=== PATIENT | male | born 1940 | race Caucasian/White ===

== ENCOUNTER 2016-08-24 07:36 | Day surgery (SDC) | payer OTHER ==
[2016-08-22 12:42] VITALS: BMI 33.7
[2016-08-24] MEDS ORDERED: PROPOFOL 20 ML ONE ×2 (07:40)
[2016-08-24] MEDS ORDERED: LIDOCAINE HCL/PF 2% SDV 5ML VIAL ONE (08:18)
[2016-08-24 10:38] VITALS: BP 145/80; PULSE 66; TEMP 97.8
--- NOTE | 2016-08-26 08:51 | PATH ---
Surgical Pathology Report Patient Name: EDUARDO FERREIRA [facility]. Rec. #: [id number] /Age/Gender: 1940 (Age: 76) / M Account: [id number] Location: [facility] Taken: 08/24/2016 Received: 08/24/2016 Reported: 08/26/2016 Physicians: Severiano Rosenberg M.D. Specimen(s) Received A: BX ANTRUM B: BX GE JUNCTION C: BX ESOPHAGUS Clinical History GERD, Cardoza's esophagus Rule out dysplasia, gastritis Final Diagnosis A. STOMACH, ANTRUM, BIOPSY: REACTIVE GASTROPATHY. IMMUNOSTAIN FOR H. PYLORI IS NEGATIVE. B. GE JUNCTION, BIOPSY: SQUAMOUS AND GASTRIC MUCOSA WITH CHRONIC INFLAMMATION AND INTESTINAL METAPLASIA CONSISTENT WITH CARDOZA'S ESOPHAGUS. NO DYSPLASIA IDENTIFIED. C. DISTAL ESOPHAGUS, BIOPSY: SQUAMOUS EPITHELIUM WITH PAPILLOMATOSIS SUGGESTIVE OF REFLUX ESOPHAGITIS. NO INTESTINAL METAPLASIA IDENTIFIED (NO CARDOZA'S IDENTIFIED). Electronically Signed Mike Curry M.D. Gross Description A. Received in formalin, labeled "antrum" are 2 horn, irregular portions of soft tissue measuring 0.3 and 0.4 cm. in greatest dimension. The specimens are submitted in toto in one cassette. B. Received in formalin, labeled "GE junction" are 3 horn, irregular portions of soft tissue ranging from 0.1-0.2 cm. in greatest dimension. The specimens are submitted in toto in one cassette. C. Received in formalin, labeled "distal esophagus" is a horn, irregular portion of soft tissue measuring 0.6 cm. in greatest dimension. The specimen is submitted in toto in one cassette. 08/24/201608/24/2016
== END 2016-08-24 10:15 | disposition home or self-care (01) ==
LOC: FASU-ENDO 07:36
PROVIDERS: ATTEND Internal Medicine Gastroenterology
PROC: 0DB48ZX Excision of Esophagogastric Junction, Via Natural or Artificial Opening Endoscopic, Diagnostic (ICD-10-PCS; principal; 2016-08-24 08:25)
PROC: 0DB68ZX Excision of Stomach, Via Natural or Artificial Opening Endoscopic, Diagnostic (ICD-10-PCS; 2016-08-24 08:25)
DX: K22.70 Barrett's esophagus without dysplasia (principal); K31.89 Other diseases of stomach and duodenum
CPT/HCPCS: 88305-TC; 88342-TC

== ENCOUNTER 2017-11-23 08:01 | Day surgery (SDC) | payer OTHER ==
[2017-11-20 11:27] VITALS: BMI 35.4
[2017-11-23 08:20] VITALS: TEMP 97.3
[2017-11-23 09:37] VITALS: BP 140/70; PULSE 77
--- NOTE | 2017-11-27 14:12 | PATH ---
Surgical Pathology Report Patient Name: EDUARDO FERREIRA [facility]. Rec. #: [id number] /Age/Gender: 1940 (Age: 77) / M Account: [id number] Location: [facility] Taken: 11/23/2017 Received: 11/23/2017 Reported: 11/27/2017 Physicians: Severiano Rosenberg M.D. Specimen(s) Received A: BX ANTRUM B: BX ESOPHAGUS Clinical History GERD, Cardoza's esophagus Postoperative diagnosis: Cardoza's esophagus, dysplasia, gastritis Final Diagnosis A. ANTRUM, BIOPSY: MILD REACTIVE GASTROPATHY. IMMUNOSTAIN FOR H. PYLORI IS NEGATIVE. B. ESOPHAGUS, BIOPSY: CARDOZA'S ESOPHAGUS WITH LOW GRADE DYSPLASIA. ESOPHAGEAL (SQUAMOUS) MUCOSA SHOWING FEATURES OF REFLUX ESOPHAGITIS. SEPARATE FRAGMENTS OF GASTRIC MUCOSA WITH NO DIAGNOSTIC ABNORMALITIES. Note: Case reviewed interdepartmentally with consensus on diagnosis. This case was discussed with Dr. Rosenberg on November 27, 2017. Electronically Signed Tomas Magallon M.D. Gross Description A. Received in formalin, labeled "antrum" are 2 horn, irregular portions of soft tissue averaging 0.4 cm. in greatest dimension. The specimens are submitted in toto in one cassette. B. Received in formalin, labeled "esophagus" are 7 horn, irregular portions of soft tissue ranging from 0.2-0.6 cm. in greatest dimension. The specimens are submitted in toto in one cassette. /11/23/2017 saudi/11/23/2017
== END 2017-11-23 09:50 | disposition home or self-care (01) ==
LOC: FASU-ENDO 08:01
PROVIDERS: ATTEND Internal Medicine Gastroenterology
PROC: 0DB38ZX Excision of Lower Esophagus, Via Natural or Artificial Opening Endoscopic, Diagnostic (ICD-10-PCS; 2017-11-23)
PROC: 0DB48ZX Excision of Esophagogastric Junction, Via Natural or Artificial Opening Endoscopic, Diagnostic (ICD-10-PCS; principal; 2017-11-23 08:31)
PROC: 0DB68ZX Excision of Stomach, Via Natural or Artificial Opening Endoscopic, Diagnostic (ICD-10-PCS; 2017-11-23 08:31)
DX: K22.710 Barrett's esophagus with low grade dysplasia (principal); Z13.810 Encounter for screening for upper gastrointestinal disorder; K44.9 Diaphragmatic hernia without obstruction or gangrene; K31.9 Disease of stomach and duodenum, unspecified; K21.0 Gastro-esophageal reflux disease with esophagitis
CPT/HCPCS: 88305-TC; 88342-TC

== ENCOUNTER 2018-05-16 09:54 | Emergency (ER) | payer OTHER ==
[2018-05-16 10:19] VITALS: BP 150/82; PULSE 75; TEMP 97.2; BMI 35.2
[2018-05-16] MEDS ORDERED: ACETAMINOPHEN 325 MG TABLET (FP) PO ONE (10:19)
[2018-05-16] MEDS ORDERED: ACETAMINOPHEN 325 MG TABLET (FP) ONE (10:27)
--- NOTE | 2018-05-16 11:07 | PDOC ---
History of Present Illness - General Chief Complaint: Injury Stated Complaint: RT FOOT PAIN Time Seen by Provider: 05/16/18 10:11 History Source: Patient Exam Limitations: No Limitations - History of Present Illness Initial Comments: 05/16/18 11:02 77 yo male h/o afib, on coumadin here with c/o right anterior harris pain. patient states had recently seen his head cager for ingrown toe nail has been soaking foot, yesterday thought maybe he bumped his foot. pain was severe right anterior harris, calf radiating up to his hip. today states mild improvement but still some redness. no cp no sob. no f/c has had cellulitis in past. mild redness he noted, overall toe is improved. Past History - Past Medical History Allergies/Adverse Reactions: Allergies Allergy/AdvReac Type Severity Reaction Status Date / Time No Known Allergies Allergy Verified 11/23/17 07:05 Home Medications: Ambulatory Orders Warfarin Na [Coumadin -] 5 mg PO DAILY 01/25/13 Pantoprazole Sodium [Protonix] 40 mg PO BID 07/28/15 Metoprolol Succinate [Toprol XL -] 25 mg PO DAILY 08/22/16 Olmesartan Medoxomil [Benicar -] 40 mg PO DAILY 08/22/16 Ascorbic Acid [Vitamin C] 250 mg PO DAILY 11/20/17 Cholecalciferol (Vitamin D3) [Vitamin D-400] 400 unit PO DAILY 11/20/17 Multivit-Mins/Iron/Folic/Lycop [Centrum Men's Tablet] 1 each PO DAILY 11/20/17 Alkol-3S/Dha/Epa/Fish Oil [Fish Oil 1,200 mg Softgel] 1 each PO DAILY 11/20/17 Zinc 50 mg PO DAILY 11/20/17 Clindamycin [Cleocin -] 150 mg PO Q8H #21 capsule 05/16/18 Finasteride [Proscar -] 5 mg PO DAILY 05/16/18 Tamsulosin HCl 0.4 mg PO DAILY 05/16/18 Anemia: No Asthma: No 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) Cardiac Disorders: Yes (A-Fib) CVA: No COPD: No CHF: No Dementia: No Diabetes: No GI Disorders: Yes (GERD,Barretts Esophagus) Disorders: Yes (BPH) HTN: Yes Hypercholesterolemia: No Liver Disease: No Seizures: No Thyroid Disease: No - Surgical History Abdominal Surgery: No Appendectomy: No Cardiac Surgery: No Cholecystectomy: No Lung Surgery: No Neurologic Surgery: No Orthopedic Surgery: No - Suicide/Smoking/Psychosocial Hx Smoking History: Former smoker Have you smoked in the past 12 months: No Number of Cigarettes Smoked Daily: 0 If you are a former smoker, when did you quit?: 1979 Information on smoking cessation initiated: No Hx Alcohol Use: No Drug/Substance Use Hx: No Substance Use Type: None Hx Substance Use Treatment: No Review of Systems - Review of Systems Constitutional: No: Chills, Diaphoresis, Fever HEENTM: No: Cataracts Respiratory: No: Cough, Orthopnea, Shortness of Breath Cardiac (ROS): No: Chest Pain Musculoskeletal: Yes: Other (calf pain). No: Back Pain, Gout, Joint Pain Integumentary: No: Bruising, Change in Color All Other Systems: Reviewed and Negative *Physical Exam - Vital Signs Last Vital Signs Temp Pulse Resp BP Pulse Ox 97.2 F L 75 20 150/82 100 05/16/18 09:54 05/16/18 09:54 05/16/18 09:54 05/16/18 09:54 05/16/18 09:54 - Physical Exam Comments: 05/16/18 11:05 awake alert lungs clear bilaterally heart rrr no mrg abd soft nt nd. ext wwp. min erythema anterior harris 5 x 6 in area. no break in skin noted. bilat nonpitting edema. right great toe no paronychia, no erythema. no exudates. 2 + dp/ pt pulses bilaterally. ED Treatment Course - RADIOLOGY Radiology Studies Ordered: Category Date Time Status LEG TIB/FIB-RIGHT [RAD] Stat Radiology 05/16/18 10:19 Taken DUPLEX VASCUL US-1 LEG [US] Stat Ultrasound 05/16/18 10:20 Ordered - Medications Given in the ED: ED Medications Discontinued Medications Generic Name Dose Route Start Last Admin Trade Name Freq PRN Reason Stop Dose Admin Acetaminophen 650 mg 05/16/18 10:19 05/16/18 10:28 Tylenol - PO 05/16/18 10:20 650 mg ONCE ONE Administration Medical Decision Making - Medical Decision Making 05/16/18 11:0 differential: early celulitis ( possible from seeding ingrown toenail), dvt due to large varicosities, traumatic contusion/ fracture. plan xray tib/ fib. doppler leg. pain control with tylenol. loc dc if all negative. consider dc on abx for early cellulitis. 05/16/18 12:46 pt with negative doppler, xray s negative. will dc on clindamycine for cellutlisis. told to follow up evaluation *DC/Admit/Observation/Transfer Diagnosis at time of Disposition: Cellulitis - Discharge Dispostion Condition at time of disposition: Improved - Prescriptions Prescriptions: Clindamycin [Cleocin -] 150 mg PO Q8H #21 capsule - Referrals - Patient Instructions Printed Discharge Instructions: Cellulitis Additional Instructions: you should take clindamycin three times daily x 7 days. follow up with your doctor for a repeat INR or coumadin level. return for fever, chills or any concerns. you xray are negative for any broken bones. , your doppler ultrasound is negative for a blood clot in your right leg. there is concern for early cellulitis due to the redness on your leg, therefore we are treating you with antiobiotics. - Post Discharge Activity
== END 2018-05-16 13:14 | disposition home or self-care (01) ==
LOC: FER 09:54
DX: L03.90 Cellulitis, unspecified (principal); Z87.891 Personal history of nicotine dependence; I48.91 Unspecified atrial fibrillation; Z79.01 Long term (current) use of anticoagulants; I10 Essential (primary) hypertension; N40.0 Benign prostatic hyperplasia without lower urinary tract symptoms
CPT/HCPCS: 73590-TC-RT-FY; 93971-TC; 99282-25

== ENCOUNTER 2018-08-08 08:19 | Day surgery (SDC) | payer OTHER ==
[2018-08-07 15:03] VITALS: BMI 35.4
[2018-08-08] MEDS ORDERED: PROPOFOL 20 ML ONE (09:41)
[2018-08-08 11:27] VITALS: TEMP 97.9
[2018-08-08 14:39] VITALS: BP 126/68; PULSE 75
--- NOTE | 2018-08-10 17:52 | PATH ---
Surgical Pathology Report Patient Name: EDUARDO FERREIRA [facility]. Rec. #: [id number] /Age/Gender: 1940 (Age: 78) / M Account: [id number] Location: [facility] Taken: 08/08/2018 Received: 08/08/2018 Reported: 08/10/2018 Physicians: Severiano Rosenberg M.D. Specimen(s) Received A: BX ANTRUM B: R/O CARDOZA'S C: BIOPSY OF DISTAL ESOPHAGUS Clinical History GERD, history of Cardoza's esophagus Postoperative diagnosis: Cardoza's, gastritis, incomplete prep Final Diagnosis A. ANTRUM, BIOPSY: GASTRIC MUCOSA WITH REACTIVE GASTROPATHY. IMMUNOSTAIN FOR H. PYLORI IS NEGATIVE. NEGATIVE FOR INTESTINAL METAPLASIA. B. ESOPHAGUS, BIOPSY, RULE OUT CARDOZA'S: CARDOZA'S ESOPHAGUS WITH LOW GRADE DYSPLASIA, FOCAL. Note: Case reviewed intradepartmentally with consensus on diagnosis. C. DISTAL ESOPHAGUS, BIOPSY: SQUAMOUS EPITHELIUM WITH FOCAL CHANGES CONSISTENT WITH REFLUX ESOPHAGITIS, MILD. NEGATIVE FOR INTESTINAL METAPLASIA. Electronically Signed Tomas Magallon M.D. Gross Description A. Received in formalin, labeled "biopsy of antrum" is a horn, irregular portion of soft tissue measuring 0.4 cm. in greatest dimension. The specimen is submitted in toto in one cassette. B. Received in formalin, labeled "biopsy of esophagus" are 5 horn, irregular portions of soft tissue ranging from 0.1-0.3 cm. in greatest dimension. The specimens are submitted in toto in one cassette. C. Received in formalin, labeled "biopsy of distal esophagus" are 2 horn, irregular portions of soft tissue measuring 0.4 and 0.7 cm. in greatest dimension. The specimens are submitted in toto in one cassette. DL/08/09/2018 saudi08/09/2018
== END 2018-08-08 12:30 | disposition home or self-care (01) ==
LOC: FASU-ENDO 08:19
PROVIDERS: ATTEND Internal Medicine Gastroenterology
PROC: 0DB68ZX Excision of Stomach, Via Natural or Artificial Opening Endoscopic, Diagnostic (ICD-10-PCS; 2018-08-08)
PROC: 0DB38ZX Excision of Lower Esophagus, Via Natural or Artificial Opening Endoscopic, Diagnostic (ICD-10-PCS; 2018-08-08)
PROC: 0DJD8ZZ Inspection of Lower Intestinal Tract, Via Natural or Artificial Opening Endoscopic (ICD-10-PCS; 2018-08-08)
PROC: 0DB48ZX Excision of Esophagogastric Junction, Via Natural or Artificial Opening Endoscopic, Diagnostic (ICD-10-PCS; principal; 2018-08-08 09:22)
DX: Z86.010 Personal history of colon polyps (principal); Z13.810 Encounter for screening for upper gastrointestinal disorder; K44.9 Diaphragmatic hernia without obstruction or gangrene; K22.70 Barrett's esophagus without dysplasia; K21.0 Gastro-esophageal reflux disease with esophagitis; K31.9 Disease of stomach and duodenum, unspecified
CPT/HCPCS: 43239; G0104; 88305-TC; 88342-TC

== ENCOUNTER 2019-09-25 08:12 | Day surgery (SDC) | payer OTHER ==
[2019-09-24 13:15] VITALS: BMI 31.1
[2019-09-25] MEDS ORDERED: LIDOCAINE HCL/PF 2% SDV 5ML VIAL ONE (08:29)
[2019-09-25] MEDS ORDERED: PROPOFOL 20 ML ONE ×2 (08:29)
[2019-09-25 09:59] VITALS: BP 126/57; PULSE 61; TEMP 98
--- NOTE | 2019-09-27 16:33 | PATH ---
Surgical Pathology Report Patient Name: EDUARDO FERREIRA [facility]. Rec. #: [id number] /Age/Gender: 1940 (Age: 79) / M Account: [id number] Location: [facility] Taken: 09/25/2019 Received: 09/25/2019 Reported: 09/27/2019 Physicians: Severiano Rosenberg M.D. Specimen(s) Received A: HOT SNARE POLYPECTOMY CECUM B: HOT SNARE POLYPECTOMY RIGHT COLON (X MULTIPLE PIECES) Clinical History History of polyp Postoperative diagnosis: Colon polyps, diverticulosis Final Diagnosis A. CECUM, POLYP, HOT SNARE POLYPECTOMY: TUBULAR ADENOMA. B. RIGHT COLON, POLYP, HOT SNARE POLYPECTOMY: TUBULAR ADENOMA. Electronically Signed Tata Purdy M.D. Gross Description A. Received in formalin labeled "hot snare polypectomy cecum," are 6 horn soft tissue fragments ranging from 0.1-0.4 cm in greatest dimension. The specimens are submitted in toto in one cassette. B. Received in formalin labeled "hot snare polypectomy right colon," is a 1.0 x 1.0 x 0.6 cm horn, polypoid portion of soft tissue. Separately received within the same container is a 0.5 cm greatest dimension horn soft tissue fragment. The polyp is bisected and the specimen is entirely submitted in 2 cassettes as follows: 1-bisected polyp; 2-separately received soft tissue fragment. 09/26/2019 saudi09/26/2019
== END 2019-09-25 10:00 | disposition home or self-care (01) ==
LOC: FASU-ENDO 08:12
PROVIDERS: ATTEND Internal Medicine Gastroenterology
PROC: 0DBH8ZX Excision of Cecum, Via Natural or Artificial Opening Endoscopic, Diagnostic (ICD-10-PCS; 2019-09-25)
PROC: 0DBK8ZX Excision of Ascending Colon, Via Natural or Artificial Opening Endoscopic, Diagnostic (ICD-10-PCS; principal; 2019-09-25 08:51)
DX: Z86.010 Personal history of colon polyps (principal); D12.0 Benign neoplasm of cecum; D12.2 Benign neoplasm of ascending colon; K57.30 Diverticulosis of large intestine without perforation or abscess without bleeding
CPT/HCPCS: 88305-TC

== ENCOUNTER 2020-10-28 08:29 | Day surgery (SDC) | payer BC, OTHER ==
[2020-10-23 15:21] VITALS: BMI 33.7
[2020-10-28 10:15] VITALS: BP 110/54; PULSE 85; TEMP 97.8
== END 2020-10-28 10:33 | disposition home or self-care (01) ==
LOC: FASU-ENDO 08:29
PROVIDERS: ATTEND Internal Medicine Gastroenterology
PROC: 0DJD8ZZ Inspection of Lower Intestinal Tract, Via Natural or Artificial Opening Endoscopic (ICD-10-PCS; principal; 2020-10-28 09:37)
DX: Z12.11 Encounter for screening for malignant neoplasm of colon (principal); Z86.010 Personal history of colon polyps; Z53.8 Procedure and treatment not carried out for other reasons

== ENCOUNTER 2020-10-29 08:40 | Day surgery (SDC) | payer BC ==
[2020-10-28 13:52] VITALS: BMI 33.7
[2020-10-29] MEDS ORDERED: PROPOFOL 20 ML ONE ×2 (09:34)
[2020-10-29 10:41] VITALS: TEMP 98
[2020-10-29 10:50] VITALS: BP 111/56; PULSE 64
== END 2020-10-29 12:45 | disposition home or self-care (01) ==
LOC: FASU-ENDO 08:40
PROVIDERS: ATTEND Internal Medicine Gastroenterology
PROC: 0DBC8ZX Excision of Ileocecal Valve, Via Natural or Artificial Opening Endoscopic, Diagnostic (ICD-10-PCS; 2020-10-29)
PROC: 0DBK8ZX Excision of Ascending Colon, Via Natural or Artificial Opening Endoscopic, Diagnostic (ICD-10-PCS; principal; 2020-10-29 09:40)
DX: Z12.11 Encounter for screening for malignant neoplasm of colon (principal); D12.0 Benign neoplasm of cecum; D12.4 Benign neoplasm of descending colon; Z86.010 Personal history of colon polyps; K57.30 Diverticulosis of large intestine without perforation or abscess without bleeding
CPT/HCPCS: 88305-TC

== ENCOUNTER 2020-11-22 23:31 | Emergency (ER) | payer BC ==
[2020-11-22 23:49] VITALS: BP 156/88; PULSE 67; TEMP 97.7; BMI 33.3
== END 2020-11-23 00:16 | disposition home or self-care (01) ==
LOC: FER 23:31
DX: K59.00 Constipation, unspecified (principal)
CPT/HCPCS: 99281-25

== ENCOUNTER 2020-12-21 18:18 | Emergency (ER) | payer BC ==
[2020-12-21 19:48] VITALS: BP 136/78; PULSE 54; TEMP 98.8; BMI 33.6
== END 2020-12-21 20:20 | disposition home or self-care (01) ==
LOC: FER 18:18
DX: S91.012A Laceration without foreign body, left ankle, initial encounter (principal); W22.8XXA Striking against or struck by other objects, initial encounter
CPT/HCPCS: 81003; 99283-25

== ENCOUNTER 2022-03-30 09:01 | Day surgery (SDC) | payer BC ==
[2022-03-25 15:15] VITALS: BMI 34.7
[2022-03-30 09:40] VITALS: RESP 18
[2022-03-30 10:28] VITALS: PULSE 82; TEMP 97.8
[2022-03-30 11:42] VITALS: BP 118/70
== END 2022-03-30 11:52 | disposition home or self-care (01) ==
LOC: FASU-ENDO 09:01
PROVIDERS: ATTEND Internal Medicine Gastroenterology
PROC: 0DBL8ZX Excision of Transverse Colon, Via Natural or Artificial Opening Endoscopic, Diagnostic (ICD-10-PCS; 2022-03-30)
PROC: 0DBM8ZX Excision of Descending Colon, Via Natural or Artificial Opening Endoscopic, Diagnostic (ICD-10-PCS; principal; 2022-03-30 09:55)
DX: Z12.11 Encounter for screening for malignant neoplasm of colon (principal); Z86.010 Personal history of colon polyps; D12.2 Benign neoplasm of ascending colon; D12.5 Benign neoplasm of sigmoid colon; K57.30 Diverticulosis of large intestine without perforation or abscess without bleeding
CPT/HCPCS: 88305-TC